=== PATIENT | female | born 1935 | race Caucasian/White ===

== ENCOUNTER 2019-06-04 14:21 | Inpatient (IN) ==
--- NOTE | 2019-06-04 16:42 | EKG Report ---
Test Performed on : 06/04/2019 4:38:07 PM Test Reason : chest pain Blood Pressure : / mmHG Vent. Rate : 113 BPM Atrial Rate : 113 BPM P-R Int : 148 ms QRS Dur : 082 ms QT Int : 362 ms P-R-T Axes : 072 024 052 degrees QTc Int : 496 ms Sinus tachycardia. with premature atrial complexes. Otherwise normal ECG When compared with ECG of 20-OCT-2014 10:45, No significant change was found Confirmed by Nilesh MENG, Seun ([id number]) on 06/05/2019 11:23:29 AM
[2019-06-04] MEDS: LEVAQUIN 500 MG/D5W 500 MG/100 ML IVPB IV SCH (18:43)
[2019-06-04] MEDS: ZOSYN 3.375 GM in NS 50 ML IV SCH ×3 (18:44→22:49)
[2019-06-04] MEDS: NORCO-5 PO PRN (18:56)
[2019-06-04 19:36] LABS: CALCIUM 8.9 mg/dL (8.8-10.2); CREATININE 1.5 mg/dL (0.5-0.9); POTASSIUM 3.4 mmol/L (3.5-5.1)
[2019-06-04 19:48] LABS: BASO# 0.02 X1000 (0.0-0.2); BASO% 0.1 % (0.0-0.8); EOS# 0.08 X1000 (0.0-0.7); EOS% 0.5 % (0.0-10.0); HEMATOCRIT 41.2 % (37.0-47.0); HEMOGLOBIN 13.2 g/dL (12.0-16.0); IMM GRAN# 0.06 X1000 (0.0-0.04); IMM GRAN% 0.4 % (0.0-0.5); LYMPH% 3.2 % (20.5-51.1); MCV 93.6 FL (81-99); MONO# 0.77 X1000 (0.11-0.59); MPV 11.8 FL (7.4-10.4); NEUT# 14.07 X1000 (1.4-6.5); NEUT% 90.8 % (42.2-75.2); PLT 185 X1000 (130-400); RDW 14.1 % (11.5-14.5)
[2019-06-04 20:01] LABS: BANDS 8 % (0-1); EOS 4 % (1-10); LYMPHS 4 % (21-51); SEGS 84 % (42-75)
[2019-06-04] MEDS ORDERED: MAGNESIUM SULFATE 2 GM/S.W.I. 2 GM/50 ML IVPB IV ONE (20:38)
[2019-06-04] MEDS: DUONEB (A & A) INH SCH (21:26)
--- NOTE | 2019-06-04 21:41 | HISTORY AND PHYSICAL ---
CHIEF COMPLAINT: Shortness of breath, cough, wheezing. HISTORY OF PRESENT ILLNESS: She is an 84-year-old white female with known history of COPD who came in with a 1-week history of cough, wheezing and shortness of breath. She is hypoxic. Pulse oximetry is 87%. Chest x-ray in my office, questionable airspace disease in the right upper lobe and right lower lobe. She was wheelchair-bound. She has a prior history of intubation for COPD. Basically admitted to the hospital for COPD exacerbation. Upon workup, the patient has elevated white cell count, dehydration. As a result, she needs some IV fluids and aggressive bronchial toilet IV antibiotics. PAST MEDICAL HISTORY: Allergic rhinitis, COPD, type 2 diabetes, hypertension, history of major depression, acid reflux disease, peripheral arterial disease, osteoarthritis, left-sided stroke with right hemiparesis, endometrial cancer stage III in remission. PAST SURGICAL HISTORY: 1. Tubal ligation. 2. Cystocele repair. 3. Right-sided lumpectomy. 4. Right hip replacement. 5. Left above knee amputation. 6. Status post radical hysterectomy followed by radiation therapy. 7. History of right popliteal peritoneal in situ vein graft and right superficial artery atherectomy by Dr. Cheema. ALLERGIES: Reported to [facility] for edema. MEDICATIONS: Celexa 10 daily, chlorthalidone 25 b.i.d., Plavix 75 mg daily, Neurontin 100 p.o. b.i.d., Symbicort, Proventil, and Ultracet and [place] as needed. FAMILY HISTORY: Father of cancer unknown. Mom of pneumonia. Brother had a heart attack. HEALTH MAINTENANCE: Flu vaccine March 2019, pneumococcal 2011, mammography, DEXA scan, colonoscopy refused. REVIEW OF SYSTEMS: HEENT Exam: No headache. No vision problem. No earache, sniffles, sore throat, cough. Neck: There is no neck pain. Cardiopulmonary: No chest pain, basically shortness of breath, cough, and wheezing. Gastrointestinal: No nausea, vomiting, abdominal pain. Genitourinary: No history of hesitancy, frequency, dysuria. Extremities: Swelling of legs, mostly on the right side due to dependent edema. Neurological: Phantom pain on the left side, taking some Neurontin and [place] and tramadol as needed. Otherwise, no neurological deficits other than prior stroke weakness. PHYSICAL EXAMINATION: Vital signs: Temperature is 98 degrees, pulse 62, blood pressure is stable, 5 feet 4 inches, 170 pounds, 3 L nasal cannula 95%. HEENT Exam: Atraumatic, normocephalic. Pupils equal, react to light. TMs are normal. Nose and throat are congested, postnasal drainage. Neck: Supple. JVD is not elevated. Chest: Bilateral wheezing. Cardiovascular: Heart sounds are very distant. Abdomen: Belly is soft, obese, nontender. Neurological: Right hemiparesis, weakness noted. INVESTIGATIONS: CBC: White cell count 15, hematocrit 41, platelets 185,000. Sodium 139, potassium 3.4, BUN 29, creatinine 1.5, glucose 167. ProBNP, cardiac enzymes were negative. ABG is pending. EKG: Sinus tachycardia, QT interval slightly prolonged. ASSESSMENT AND PLAN: 1. An 84-year-old, white female admitted to the hospital with chronic obstructive pulmonary disease exacerbation with airspace disease, right upper lobe, elevated white cell count, hypoxemia. Plan is IV Levaquin, IV Zosyn. 2. Dehydration. IV fluids. 3. Hypokalemia. Replace the potassium. 4. Hypertension on chlorthalidone, not able to take Norvasc due to edema. 5. Peripheral arterial disease on Plavix. 6. Chronic phantom pain taking Neurontin and tramadol, hydrocodone as needed. Continue on bronchodilators. The patient is on Symbicort and Proventil. The patient had pneumococcal vaccine in 2011, flu vaccine 2019, and we will follow up. cc: Jose Rey MD
[2019-06-04] MEDS: NS 1,000 ML IV SCH (22:49)
[2019-06-05] MEDS: DUONEB (A & A) INH SCH ×4 (03:37→20:13)
[2019-06-05] MEDS: ZOSYN 3.375 GM in NS 50 ML IV SCH ×4 (05:13→21:29)
[2019-06-05] MEDS: NORCO-5 PO PRN ×3 (05:24→21:26)
[2019-06-05] MEDS: KLOR-CON PO SCH (08:42)
[2019-06-05] MEDS: CELEXA PO SCH (08:42)
[2019-06-05] MEDS: PLAVIX PO SCH (08:43)
[2019-06-05] MEDS: HYGROTON PO SCH (08:43)
[2019-06-05] MEDS: SYMBICORT 160/4.5 MICROGM INHALER INH SCH ×2 (08:47→20:14)
[2019-06-05] MEDS: NS 1,000 ML IV SCH (10:38)
[2019-06-05] MEDS: LEVAQUIN 500 MG/D5W 500 MG/100 ML IVPB IV SCH (16:11)
[2019-06-05] MEDS ORDERED: SODIUM CHLORIDE 0.9% INJ SCH (19:00)
--- NOTE | 2019-06-05 19:45 | PROGRESS NOTE ---
DATE: 06/05/2019 SUBJECTIVE: The patient is somewhat better, still coughing and wheezing. REVIEW OF SYSTEMS: No chest pain. OBJECTIVE: Vital signs: Temperature is 98 degrees, tachycardic. Vitals are stable. HEENT: Within normal limits. Respiratory: Bilateral wheezing. Cardiovascular: Distant heart sounds. Abdomen: Belly is soft, nontender. Extremities: Left BKA noted. INVESTIGATIONS: None reported. ASSESSMENT AND PLAN: 1. Acute chronic obstructive pulmonary disease exacerbation with airspace disease on the right side. Continue on Levaquin and Zosyn. 2. Replace the potassium and magnesium, intravenous fluids. 3. Phantom pain. Continue on [place]. 4. Deep venous thrombosis and gastrointestinal prophylaxis as per order sheet. Discussed the plan of care with the family. We will follow up. LEVEL OF DOCUMENTATION: 25 minutes. cc: Jose Rey MD
[2019-06-05] MEDS: PROTONIX IV SCH (21:26)
[2019-06-05] MEDS: LOVENOX SUBQ SCH (21:26)
[2019-06-06] MEDS: NS 1,000 ML IV SCH ×2 (03:16→16:31)
[2019-06-06] MEDS: DUONEB (A & A) INH SCH ×4 (03:52→20:59)
[2019-06-06] MEDS: ZOSYN 3.375 GM in NS 50 ML IV SCH ×4 (04:20→21:59)
[2019-06-06] MEDS: SYMBICORT 160/4.5 MICROGM INHALER INH SCH ×2 (08:47→20:59)
[2019-06-06] MEDS: HYGROTON PO SCH (08:50)
[2019-06-06] MEDS: KLOR-CON PO SCH (08:50)
[2019-06-06] MEDS: CELEXA PO SCH (08:50)
[2019-06-06] MEDS: PLAVIX PO SCH (08:50)
[2019-06-06] MEDS: NORCO-5 PO PRN (08:51)
[2019-06-06] MEDS ORDERED: ZOSYN ONE (11:59)
--- NOTE | 2019-06-06 15:08 | PROGRESS NOTE ---
DATE: 06/06/2019 SUBJECTIVE: The patient is doing better, still coughing and wheezing. OBJECTIVE: Vital Signs: Current room temperature is 98 degrees. Vitals are stable. HEENT: Exam within normal limits. Lungs: Scattered wheezing. Suboptimal exam. Abdomen: Belly is soft, nontender. Extremities: Left below-knee amputation noted. LABS: No labs were done. ASSESSMENT AND PLAN: 1. Acute chronic obstructive pulmonary disease exacerbation. Continue on Zosyn, Levaquin. 2. Dehydration. Intravenous fluids. 3. Deep vein thrombosis and gastrointestinal prophylaxis. As per orders to check the labs in the morning, CBC, SMA 7, chest x-ray, and will follow up. LEVEL OF DOCUMENTATION: 25 minutes. cc: Jose Rey MD
[2019-06-06] MEDS: LEVAQUIN 500 MG/D5W 500 MG/100 ML IVPB IV SCH (16:31)
[2019-06-06] MEDS: LOVENOX SUBQ SCH (18:03)
[2019-06-06] MEDS: PROTONIX IV SCH (21:57)
[2019-06-07] MEDS: ZOSYN 3.375 GM in NS 50 ML IV SCH ×4 (04:53→21:47)
[2019-06-07] MEDS: NS 1,000 ML IV SCH (04:53)
[2019-06-07 08:09] LABS: EOS# 0.03 X1000 (0.0-0.7); EOS% 0.3 % (0.0-10.0); HEMATOCRIT 33.1 % (37.0-47.0); HEMOGLOBIN 10.6 g/dL (12.0-16.0); IMM GRAN# 0.04 X1000 (0.0-0.04); IMM GRAN% 0.4 % (0.0-0.5); LYMPH# 0.39 X1000 (1.2-3.4); LYMPH% 3.5 % (20.5-51.1); MCH 28.8 PG (27-31); MCV 89.9 FL (81-99); MONO# 0.76 X1000 (0.11-0.59); MONO% 6.9 % (1.7-9.3); NEUT# 9.82 X1000 (1.4-6.5); NEUT% 88.9 % (42.2-75.2); PLT 221 X1000 (130-400); RBC 3.68 XMIL (4.2-5.4); RDW 13.9 % (11.5-14.5); WBC 11.04 X1000 (4.8-10.8)
[2019-06-07 08:16] LABS: CALCIUM 8.6 mg/dL (8.8-10.2); CREATININE 0.9 mg/dL (0.5-0.9); POTASSIUM 2.9 mmol/L (3.5-5.1)
[2019-06-07 08:53] LABS: ANISOCYTOSIS 1+; EOS 1 % (1-10); HYPOCHROM 2+; LYMPHS 4 % (21-51); MICROCYTOSIS 1+; MONO 7 % (1-9); SEGS 88 % (42-75)
[2019-06-07] MEDS ORDERED: MIRALAX PO ONE (09:04)
[2019-06-07] MEDS ORDERED: KLOR-CON PO ONE (09:07)
--- NOTE | 2019-06-07 09:31 | Diag Imaging Result Doc PS360 ---
CHEST-2 VIEWS - 06/07/2019 INDICATION: hypoxia COMPARISON: 11/01/2014 FINDINGS: There is cardiomegaly and pulmonary vascular congestion. There are ill-defined central interstitial infiltrates bilaterally, compatible with pulmonary edema. There are trace bilateral pleural effusions. IMPRESSION: Congestive heart failure. Electronically signed by Zacarias Cummings 06/07/2019 9:29 AM
[2019-06-07] MEDS: SYMBICORT 160/4.5 MICROGM INHALER INH SCH ×2 (09:48→20:01)
[2019-06-07] MEDS: DUONEB (A & A) INH SCH ×4 (09:48→20:01)
[2019-06-07] MEDS: PLAVIX PO SCH (09:56)
[2019-06-07] MEDS: CELEXA PO SCH (09:56)
[2019-06-07] MEDS: HYGROTON PO SCH (09:56)
[2019-06-07] MEDS: KLOR-CON PO SCH (09:58)
[2019-06-07] MEDS: NORCO-5 PO PRN (10:05)
[2019-06-07] MEDS: POTASSIUM CHLORIDE 20 MEQ/SWI 20 MEQ/100 ML IVPB IV SCH ×2 (10:42→12:18)
[2019-06-07] MEDS ORDERED: LASIX IV ONE (11:46)
--- NOTE | 2019-06-07 13:44 | PROGRESS NOTE ---
DATE: 06/07/2019 SUBJECTIVE: The patient still coughing, congested. Chest x-ray was done, a little bit fluid noted, decreased infiltrates in the right upper lobe. Constipation noted. Potassium is low. EXAM: Vitals are stable. 3 L nasal cannula 95%.HEENT: Within normal limits. Neck: Supple. Chest: Is wheezing. Distant heart sounds. Belly is soft, nontender. INVESTIGATIONS: White cell count 11, hematocrit 33, platelets 221,000. SMA 7 potassium 2.9. ProBNP 535. Chest x-ray, left pleural effusion. ASSESSMENT AND PLAN: 1. Discontinue intravenous fluids. 2. Lasix 1 dose . 3. Replace the potassium. 4. Constipation MiraLAX and Dulcolax. Continue IV antibiotics. White cell count is coming down and bronchodilators. Will keep her here until Saturday. LEVEL OF DOCUMENTATION: 25 minutes. cc: Jose Rey MD
[2019-06-07] MEDS: LEVAQUIN 500 MG/D5W 500 MG/100 ML IVPB IV SCH (16:28)
[2019-06-07] MEDS: LOVENOX SUBQ SCH (18:11)
[2019-06-07] MEDS: PROTONIX IV SCH (21:47)
[2019-06-08] MEDS: DUONEB (A & A) INH SCH ×4 (02:52→20:10)
[2019-06-08] MEDS: ZOSYN 3.375 GM in NS 50 ML IV SCH ×4 (03:57→23:30)
[2019-06-08] MEDS: NORCO-5 PO PRN ×2 (05:16→18:25)
[2019-06-08] MEDS ORDERED: LASIX IV ONE (08:54)
[2019-06-08] MEDS: SYMBICORT 160/4.5 MICROGM INHALER INH SCH ×2 (09:43→20:11)
[2019-06-08] MEDS: POTASSIUM CHLORIDE 20 MEQ/SWI 20 MEQ/100 ML IVPB IV SCH ×2 (09:51→14:24)
[2019-06-08] MEDS: KLOR-CON PO SCH (09:51)
[2019-06-08] MEDS: CELEXA PO SCH (09:51)
[2019-06-08] MEDS: HYGROTON PO SCH (09:51)
[2019-06-08] MEDS: PLAVIX PO SCH (09:51)
[2019-06-08] MEDS: MIRALAX PO SCH (09:52)
[2019-06-08] MEDS: LEVAQUIN 500 MG/D5W 500 MG/100 ML IVPB IV SCH (16:42)
[2019-06-08] MEDS: LOVENOX SUBQ SCH (18:25)
[2019-06-08] MEDS: PROTONIX IV SCH (20:40)
--- NOTE | 2019-06-08 21:40 | PROGRESS NOTE ---
DATE: 06/08/2019 SUBJECTIVE: The patient is a little better. Mott was placed. Excellent diuresis. Still coughing and wheezing. Her intake and output negative about 2 L. OBJECTIVE: HEENT: Exam within normal limits. Lungs: Scattered wheezing. Heart: Sounds are regular. Extremities: Left above-knee amputation and right leg is better. LABS: None reported. ASSESSMENT AND PLAN: 1. Acute chronic obstructive pulmonary disease exacerbation. 2. Volume overload. 3. Hypokalemia. 4. Chronic obstructive pulmonary disease. PLAN: Continue IV antibiotics. Constipation is better. Repeat the chest x-ray and labs in the morning. If he continues to improve, we will discharge in the morning. LEVEL OF DOCUMENTATION: 25 minutes. cc: Jose Rey MD
[2019-06-09] MEDS: DUONEB (A & A) INH SCH ×2 (03:37→08:17)
[2019-06-09] MEDS: ZOSYN 3.375 GM in NS 50 ML IV SCH (05:26)
[2019-06-09 07:35] LABS: BASO# 0.02 X1000 (0.0-0.2); BASO% 0.2 % (0.0-0.8); EOS# 0.06 X1000 (0.0-0.7); EOS% 0.7 % (0.0-10.0); HEMATOCRIT 34.1 % (37.0-47.0); IMM GRAN# 0.11 X1000 (0.0-0.04); IMM GRAN% 1.3 % (0.0-0.5); LYMPH# 0.55 X1000 (1.2-3.4); LYMPH% 6.5 % (20.5-51.1); MCH 29.2 PG (27-31); MCHC 32.3 g/dL (33-37); MCV 90.5 FL (81-99); MONO# 0.87 X1000 (0.11-0.59); MONO% 10.3 % (1.7-9.3); MPV 10.5 FL (7.4-10.4); NEUT# 6.84 X1000 (1.4-6.5); PLT 253 X1000 (130-400); RBC 3.77 XMIL (4.2-5.4); WBC 8.45 X1000 (4.8-10.8)
[2019-06-09 08:02] VITALS: BP 172/65
[2019-06-09 08:11] LABS: CALCIUM 9.2 mg/dL (8.8-10.2); CREATININE 0.9 mg/dL (0.5-0.9); POTASSIUM 3.6 mmol/L (3.5-5.1)
--- NOTE | 2019-06-09 08:16 | Diag Imaging Result Doc PS360 ---
EXAM: CHEST-2 VIEWS 06/09/2019 HISTORY: hypoxia TECHNIQUE: PA and lateral chest COMMENT: Compared to the previous study of 06/07/2019 there is less pleural fluid on the left. There continues to be coarse ill-defined opacities in the medial right upper lobe, right lower lobe, and left base. This is generally worse than on 10/22/2014. IMPRESSION: Pulmonary edema and/or pneumonia. Decreased left pleural effusion. Electronically signed by Irwin Aggarwal 06/09/2019 8:14 AM
[2019-06-09] MEDS: SYMBICORT 160/4.5 MICROGM INHALER INH SCH (08:17)
[2019-06-09] MEDS ORDERED: PREVNAR 13 IM ONE (09:08)
[2019-06-09] MEDS: CELEXA PO SCH (09:53)
[2019-06-09] MEDS: MIRALAX PO SCH (09:53)
[2019-06-09] MEDS: NORCO-5 PO PRN (09:53)
[2019-06-09] MEDS: PLAVIX PO SCH (09:54)
[2019-06-09] MEDS: KLOR-CON PO SCH (09:54)
[2019-06-09] MEDS: HYGROTON PO SCH (09:54)
--- NOTE | 2019-06-09 19:59 | DISCHARGE SUMMARY ---
ADMISSION DATE: 06/04/2019 DISCHARGE DATE: 06/09/2019 DISCHARGING DIAGNOSIS: 1. Acute chronic obstructive pulmonary disease exacerbation. 2. Volume overload with intravenous fluids. 3. Hypokalemia. 4. Constipation due to narcotics. 5. Type 2 diabetes diet controlled, hypertension, depression, acid reflux disease, peripheral artery disease, left-sided stroke with right hemiparesis and endometrial cancer stage III in remission. 6. Left above-knee amputation stable with phantom pain. BRIEF HISTORY: Please see the H and P that was done on 06/04/2019. In brief she is 84-year-old white female with above problems came in with shortness of breath, cough, wheezing, hypoxic, and some airspace disease on the right upper lobe and the right lower lobe. She was hypoxic. HOSPITAL COURSE: She was given IV antibiotics with Levaquin, Zosyn and oxygen bronchodilators. The patient was dehydrated. Given some IV fluids. Followup chest x-ray mild volume overload with pleural effusion. ProBNP slightly elevated. Patient was given Lasix followed by Mott catheter. After diuresis, chest x-ray is improving. The patient has a low potassium which was replaced and now the lungs are very clear. The patient is breathing better. She was discharged home in stable condition. LABORATORY DATA: White cell count came back normal 8.4, hematocrit 34, platelets 253,000. Sodium 137, potassium 3.6, chloride 97, BUN 13, creatinine 0.9, glucose 164, proBNP 535. DISCHARGE INSTRUCTIONS: 1. Pneumococcal vaccine 13 was given 06/09/2019. 2. Flu vaccine was up-to-date 2018. Plavix 75 daily, Ultracet 1 tablet daily, chlorthalidone 25 daily, Celexa 10 mg daily, Levaquin 500 daily for 10 days, Medrol Dosepak, Breo 1 puff daily, potassium 20 mEq daily and stool softeners as needed. Follow up in my office in 10 days. cc: Jose Rey MD
== END 2019-06-09 11:23 | disposition home or self-care (01) | DRG 191 ==
LOC: DIRADM 14:21 → EDIPHOLD 14:48 → 3N 17:57
PROVIDERS: ADMIT Internal Medicine; ATTEND Internal Medicine